=== PATIENT | male | born 1980 | race Caucasian/White ===

== ENCOUNTER → 2025-03-19 11:21 | Outpatient (CLI) | payer OTHER, SELFPAY ==
[2025-03-19 12:53] LABS: Rheumatoid Factor 9.3 IU/mL (<12.0)
[2025-03-20 15:03] LABS: HIV 1 & 2 Ab/Ag 4th Gen Combo NEGATIVE (NEGATIVE)
[2025-03-21 08:10] LABS: Alpha 1 Anti Trypsin 168 mg/dL (101-187); IGA 203 mg/dL (90-386); IGG 1299 mg/dL (603-1613); IGM 120 mg/dL (20-172)
[2025-03-23 13:13] LABS: CCP Antibodies IgG/IgA 7 units (0-19)
[2025-03-23 19:38] LABS: Immunoglobulin E 16 IU/mL (6-495)
[2025-03-24 09:09] LABS: Aspergillus fumigatus IgE <0.10 kU/L (Class 0)
== END ==
PROVIDERS: PCP Nurse Practitioner Acute Care; Referring Provider Internal Medicine; Visit Provider Internal Medicine
DX: J47.9 Bronchiectasis, uncomplicated (principal)
CPT/HCPCS: 36415; 81220; 82103; 82784; 82785; 83520; 86003; 86200; 86430; 87389; 99215